=== PATIENT | male | born 1960 | race Caucasian/White ===

== ENCOUNTER → 2023-07-26 | Emergency (ER) | payer BC ==
--- OUTSIDE RECORDS SUMMARY | 2023-07-26 15:43 | XMS REPORT | Continuity of Care Document ---
Demographics Address [address] [place] [address] Email Address Preferred Language Unknown Marital Status Unknown Yazdanism Affiliation Unknown Race Unknown Ethnic Group Unknown Author Name Unknown Address [address] [place] [address] [address] [place] [address] [facility] thconnect Address [address] [facility] [address] [place] [address] Care Team Providers Care Computer Builder Name Role Phone Unavailable Unavailable Unavailable Immunizations Ordered Immunization Name Filled Immunization Name Date Status Comments Source Moderna COVID-19 Vaccine Moderna COVID-19 Vaccine 2020-11-11 00:00:00 Completed Moderna COVID-19 Vaccine Moderna COVID-19 Vaccine 2020-10-13 00:00:00 Completed Encounters Start Date/Time End Date/Time Encounter Type Admission Type Attending [facility] Facility Care Department Encounter ID Source 2020-11-11 00:00:00 2020-11-11 00:00:00 Outpatient [facility] [id number] [facility] 2020-10-13 00:00:00 2020-10-13 00:00:00 Outpatient [facility] [id number] [facility]
[2023-07-26 16:54] LABS: Absolute Lymphocytes (CBC) 1.5 K/uL (0.7-4.9); Hematocrit 33.1 % (39.6-49.0); MCV 90.4 fL (80-100); MPV 7.4 fL (7.6-11.3); Platelets 205 thou/uL (152-406); RBC Red Blood Cell Count 3.66 M/uL (4.33-5.43)
--- NOTE | 2023-07-26 16:57 | RAD REPORT ---
EXAM DESCRIPTION: Carlitos Single View07/26/2023 4:42 pm CLINICAL HISTORY: sob COMPARISON: none FINDINGS: The lungs appear clear of acute infiltrate. The heart is normal size IMPRESSION: No acute abnormalities displayed
[2023-07-26 17:14] LABS: Albumin 3.6 g/dL (3.4-5.0); Bilirubin Direct 0.2 mg/dL (0-0.2); Bilirubin Indirect, Calculated 0.3 mg/dL (0.2-0.8); Bilirubin Total 0.5 mg/dL (0.2-1.0); Magnesium 1.9 mg/dL (1.6-2.4); Potassium 3.9 mEq/L (3.5-5.1); Troponin High Sensitivity 6.1 pg/mL (<58.9)
--- NOTE | 2023-07-26 18:09 | ER ---
Nurse's Notes [facility] Name: Ubaldo Wilson Age: 62 yrs Sex: Male : 1960 Arrival Date: 07/26/2023 Time: 15:38 Bed 17 Private MD: Diagnosis: Essential (primary) hypertension;Alcohol abuse Presentation: 07/26 15:43 Chief complaint: EMS states: toned out to [employer] parking lot for anxiety attack. Pt ld1 reports trying to stop drinking alcohol - had 1.5 beers today and began to hyperventilate. EMS reports pt diaphoretic, tremors, hyperventilating upon arrival. EMS administered 1 mg Ativan IV \T\ 1 SL Nitro. Coronavirus screen: At this time, the client does not indicate any symptoms associated with coronavirus-19. Ebola Screen: No symptoms or risks identified at this time. Initial Sepsis Screen: Does the patient meet any 2 criteria? No. Patient's initial sepsis screen is negative. Does the patient have a suspected source of infection? No. Patient's initial sepsis screen is negative. Risk Assessment: Do you want to hurt yourself or someone else? Patient reports no desire to harm self or others. Onset of symptoms was July 26, 2023. 15:43 Method Of Arrival: EMS: [facility] ld1 15:43 Acuity: NICOLLE 3 ld1 Triage Assessment: 15:45 General: Appears in no apparent distress. comfortable, Behavior is cooperative, ld1 anxious. Pain: Denies pain. EENT: No signs and/or symptoms were reported regarding the EENT system. Neuro: Level of Consciousness is awake, alert, obeys commands, Oriented to person, place, time, situation. Cardiovascular: Capillary refill < 3 seconds Patient's skin is warm and dry. Respiratory: Airway is patent Respiratory effort is even, labored. GI: Abdomen is flat, non-distended. : No signs and/or symptoms were reported regarding the genitourinary system. Derm: No signs and/or symptoms reported regarding the dermatologic system. Musculoskeletal: No signs and/or symptoms reported regarding the musculoskeletal system. Historical: - Allergies: 15:45 No Known Allergies; ld1 - PMHx: 15:45 Hypertensive disorder; Hypercholesterolemia; Alcoholism; TIA; Skin cancer; ld1 - Immunization history:: Adult Immunizations up to date. - Social history:: Smoking status: Patient denies any tobacco usage or history of. Patient uses alcohol, claims drinking about a 6 pack/day. Screenin:46 Clinical [place] Withdrawal Assessment for Alcohol, revised (CIWA-Ar): Anxiety: 4 - ld1 Moderately anxious, guarded Tremor: 4 - Moderate when client's hands extended. [facility] ED Fall Risk Assessment (Adult) History of falling in the last 3 months, including since admission No falls in past 3 months (0 pts). Abuse screen: Denies threats or abuse. Denies injuries from another. Nutritional screening: No deficits noted. Tuberculosis screening: No symptoms or risk factors identified. Assessment: 15:46 Reassessment: See triage assessment. ld1 16:26 Reassessment: No changes from previously documented assessment. Patient and/or family ll1 updated on plan of care and expected duration. Pain level reassessed. 17:58 Reassessment: No changes from previously documented assessment. Patient and/or family me1 updated on plan of care and expected duration. Pain level reassessed. Vital Signs: 15:43 BP 146 / 89; Pulse 93; Resp 24; Temp 98.3(TE); Pulse Ox 99% on R/A; Weight 61.23 kg; ld1 Height 5 ft. 6 in. ; Pain 0/10; 16:00 BP 155 / 83; Pulse 79; Resp 18; Pulse Ox 97% on R/A; me1 16:00 BP 161 / 84; Pulse 71; Resp 17; Pulse Ox 97% on R/A; me1 15:43 Body Mass Index 21.79 (61.23 kg, 167.64 cm) ld1 15:43 Pain Scale: Adult ld1 ED Course: 15:43 Patient arrived in ED. ld1 15:45 Triage completed. ld1 15:45 Arm band placed on right wrist. ld1 15:46 Patient has correct armband on for positive identification. Placed in gown. Bed in low ld1 position. Call light in reach. Side rails up X2. panel monitor on. Pulse ox on. NIBP on. Door closed. Noise minimized. Warm blanket given. 15:46 Maintain EMS IV. Dressing intact. Good blood return noted. Site clean \T\ dry. Gauge \T\ ld 1 site: 20G RW. 15:47 Ed Rodriguez DO is Attending Physician. ms3 15:58 Ana Acosta, RN is Primary Nurse. me1 16:43 XRAY Chest (1 view) In Process Unspecified. EDMS 18:19 Provided Education on: POC. Verbalized understanding. . me1 18:19 No provider procedures requiring assistance completed. IV discontinued, intact, me1 bleeding controlled, No redness/swelling at site. Pressure dressing applied. Administered Medications: No medications were administered Medication: 18:19 VIS not applicable for this client. me1 Outcome: 18:09 Discharge ordered by MD. ms3 18:20 Discharged to home ambulatory, with family, me1 18:20 Condition: stable 18:20 Discharge instructions given to patient, family, Instructed on discharge instructions, follow up and referral plans. Demonstrated understanding of instructions, follow-up care, 18:21 Patient left the ED. me1 Signatures: Dispatcher [employer] EDRashawn Plaza RN RN 1 Ed Rodriguez DO DO ms3 Zoila Rodriguez RN RN ld1 Ana Acosta, SOTO RN me1 Corrections: (The following items were deleted from the chart) 15:47 15:43 Chief complaint: EMS states: toned out to [employer] parking lot for anxiety ld1 attack. Pt reports trying to stop drinking alcohol - had 1.5 beers today and began to hyperventilate. EMS reports pt diaphoretic, tremors, hyperventilating upon arrival. ld1 15:59 15:43 Chief complaint: EMS states: toned out to [employer] parking lot for anxiety me1 attack. Pt reports trying to stop drinking alcohol - had 1.5 beers today and began to hyperventilate. EMS reports pt diaphoretic, tremors, hyperventilating upon arrival. EMS administered 1 mg Ativan IV \T\ 1 SL Nitro. ld1
--- NOTE | 2023-07-26 18:09 | EDPHYS ---
Physician Documentation [facility] Name: Ubaldo Wilson Age: 62 yrs Sex: Male : 1960 Arrival Date: 07/26/2023 Time: 15:38 Bed 17 Private MD: ED Physician Ed Rodriguez HPI: 07/26 17:08 This 62 yrs old Male presents to ER via EMS with complaints of Alcohol Withdrawal. ms3 17:08 62-year-old male with past medical history of hypertension, hypercholesterolemia, ms3 alcoholism, TIA, skin cancer presents to the emergency department via [facility] for hyperventilation, tachycardia, shaking for 1 and half hours prior to arrival. On EMS arrival patient's blood pressure was 233/100. EMS notes patient stopped drinking Monday/Monday. Patient states he had a beer at lunch today. Patient states his physician has given him oxazepam and he states he has felt weird taking that medication. Patient states he typically drinks 5-6 beers per day. Historical: - Allergies: 15:45 No Known Allergies; ld1 - PMHx: 15:45 Hypertensive disorder; Hypercholesterolemia; Alcoholism; TIA; Skin cancer; ld1 - Immunization history:: Adult Immunizations up to date. - Social history:: Smoking status: Patient denies any tobacco usage or history of. Patient uses alcohol, claims drinking about a 6 pack/day. ROS: 17:08 Constitutional: Negative for fever, and chills. Neck: Negative for injury, pain, and ms3 swelling, Cardiovascular: Negative for chest pain, and palpitations. Respiratory: Negative for shortness of breath, cough, wheezing, and pleuritic chest pain, Abdomen/GI: Negative for abdominal pain, nausea, vomiting, diarrhea, and constipation, MS/Extremity: Negative for injury and deformity, Skin: Negative for injury, rash, and discoloration, 17:08 All other systems are negative, Exam: 17:08 Constitutional: This is a well developed, well nourished patient who is awake, alert, ms3 and in no acute distress. Head/Face: Normocephalic, atraumatic. Neck: Trachea midline, no cervical lymphadenopathy. Supple, full range of motion without nuchal rigidity, or vertebral point tenderness. No Meningismus. Chest/axilla: Normal chest wall appearance and motion. Nontender with no deformity. Cardiovascular: Regular rate and rhythm with a normal S1 and S2. No gallops, murmurs, or rubs. Normal PMI, no JVD. No pulse deficits. Respiratory: Lungs have equal breath sounds bilaterally, clear to auscultation and percussion. No rales, rhonchi or wheezes noted. No increased work of breathing, no retractions or nasal flaring. Abdomen/GI: Soft, non-tender, with normal bowel sounds. No distension or tympany. No guarding or rebound. No evidence of tenderness throughout. Skin: Warm, dry with normal turgor. Normal color with no rashes, no lesions, and no evidence of cellulitis. 17:08 ECG was reviewed by the Attending Physician. Vital Signs: 15:43 BP 146 / 89; Pulse 93; Resp 24; Temp 98.3(TE); Pulse Ox 99% on R/A; Weight 61.23 kg; ld1 Height 5 ft. 6 in. ; Pain 0/10; 16:00 BP 155 / 83; Pulse 79; Resp 18; Pulse Ox 97% on R/A; me1 16:00 BP 161 / 84; Pulse 71; Resp 17; Pulse Ox 97% on R/A; me1 15:43 Body Mass Index 21.79 (61.23 kg, 167.64 cm) ld1 15:43 Pain Scale: Adult ld1 MDM: 16:30 Patient medically screened. ms3 18:09 Differential Diagnosis Alcohol withdrawal vs HTN vs Electrolyte Abnormality. Data ms3 reviewed: vital signs, nurses notes, lab test result(s), EKG, radiologic studies, and as a result, I will discharge patient. Historians other than the Patient: EMS: [facility]. Care significantly affected by the following chronic conditions: Hypertension, Alcoholism. Counseling: I had a detailed discussion with the patient and/or guardian regarding the historical points, exam findings, and any diagnostic results supporting the discharge/admit diagnosis, lab results, radiology results, the need for outpatient follow up, to return to the emergency department if symptoms worsen or persist or if there are any questions or concerns that arise at home. Special discussion: I discussed with the patient/guardian in detail that at this point there is no indication for admission to the hospital. It is understood, however, that if the symptoms persist or worsen the patient needs to return immediately for re-evaluation. ED course: Discussed Librium prescription with patient and his and they declined at this time. Patient to follow-up with his primary care physician in 2 to 3 days. Patient understands and agrees with plan. All questions were answered. Return precautions discussed include worsening symptoms, or any other concerns.. 07/26 16:12 Order name: Basic Metabolic Panel; Complete Time: 17:20 ms3 07/26 16:12 Order name: CBC with Diff; Complete Time: 17:04 ms3 07/26 16:12 Order name: LFT's; Complete Time: 17:20 ms3 07/26 16:12 Order name: Magnesium; Complete Time: 17:20 ms3 07/26 16:12 Order name: Troponin HS; Complete Time: 17:20 ms3 07/26 16:12 Order name: XRAY Chest (1 view); Complete Time: 17:04 ms3 07/26 16:12 Order name: Cardiac monitoring; Complete Time: 16:29 ms3 07/26 16:12 Order name: EKG - Nurse/Tech; Complete Time: 16:29 ms3 07/26 16:12 Order name: IV Saline Lock; Complete Time: 16:26 ms3 07/26 16:12 Order name: Labs collected and sent; Complete Time: 16:26 ms3 07/26 16:12 Order name: O2 Per Protocol; Complete Time: 16:15 ms3 07/26 16:12 Order name: O2 Sat Monitoring; Complete Time: 16:15 ms3 EC:08 Rate is 70 beats/min. Rhythm is regular. QRS [place] is Normal. MS interval is normal. QRS ms3 interval is normal. Clinical impression: Normal ECG. Interpreted by me. Reviewed by me. Administered Medications: No medications were administered Disposition Summary: 07/26/23 18:09 Discharge Ordered Notes: Location: Home ms3 Condition: Stable ms3 Diagnosis - Essential (primary) hypertension ms3 - Alcohol abuse ms3 Followup: ms3 - With: Private Physician - When: 2 - 3 days - Reason: Recheck today's complaints Discharge Instructions: - Discharge Summary Sheet ms3 - Hypertension, Adult ms3 - Alcohol Abuse and Dependence Information, Adult ms3 Forms: - Medication Reconciliation Form ms3 - Thank You Letter ms3 - Antibiotic Education ms3 - Prescription Opioid Use ms3 - Patient Portal Instructions ms3 - Leadership Thank You Letter ms3 Signatures: Dispatcher [employer] EDEd Wilson, DO ms3 oZila Rodriguez, RN RN ld1
[2023-07-26 19:08] VITALS: TEMP 98.3
[2023-07-26 19:13] VITALS: BP 161/84; O2SAT 97
--- NOTE | 2023-07-28 15:13 | EKG ---
Test Date: 2023-07-26 Test Time: 16:34:40 Unit Aide Tech: PATRICE MEASUREMENT RESULTS: Intervals: Rate: 70 SD: 166 QRSD: 80 QT: 370 QTc: 399 [place]: P: 22 SD: 166 QRS: -2 T: 60 INTERPRETIVE STATEMENTS: Normal sinus rhythm Normal ECG No previous ECG available for comparison Electronically Signed On 07-28-23 15:09:18 METAL RIVETER by Bud Medina
== END ==
LOC: ER 15:38
DX: F10.20 Alcohol dependence, uncomplicated (principal); I10 Essential (primary) hypertension; Z85.828 Personal history of other malignant neoplasm of skin; Z86.73 Personal history of transient ischemic attack (TIA), and cerebral infarction without residual deficits
CPT/HCPCS: 36415; 71045; 80048; 80076; 83735; 84484; 85025; 93005; 99284